=== PATIENT | female | born 1955 | race Caucasian/White ===

== ENCOUNTER 2021-10-29 14:16 | Emergency (ER) | payer MEDICARE, SELFPAY ==
--- NOTE | ~2021-10-29 | XR_ITS ---
XR ankle LT min 3V, XR foot LT min 3V 10/29/2021 15:09 Indication: Left foot and ankle pain after fall Procedure: 4 views left ankle and 4 views of the left foot Comparison: No prior studies for comparison. Findings: There is a large amount of soft tissue swelling surrounding the ankle. There is an avulsion fracture anterior superior margin of the talus on lateral view. Osteopenia. Ankle mortise intact. Ta lar dome is normal. There is a nondisplaced intra-articular fracture medial base of the fifth proximal phalanx. There is polyarticular osteoarthritis. Lisfranc joint intact. Impression: 1: Nondisplaced avulsion fracture anterior superior margin of the talus. 2: Nondisplaced intra-articular fracture medial base of the left fifth proximal phalanx. Reviewed, dictated and finalized at location A. Impression: 1: Nondisplaced avulsion fracture anterior superior margin of the talus. 2: Nondisplaced intra-articular fracture medial base of the left fifth proxima l phalanx. Impression: 1: Nondisplaced avulsion fracture anterior superior margin of the talus. 2: Nondisplaced intra-articular fracture medial base of the left fifth proxima l phalanx.
[2021-10-29 14:38] VITALS: BP 142/72; PULSE 71; RESP 20; TEMP 36.7; O2SAT 100
--- NOTE | 2021-10-29 14:54 | ED.LOWEXIN ---
HPI - Extremity Injury (Lower) General Chief Complaint: Extremity Injury, Lower Stated Complaint: knees and right foot injury Time Seen by Provider: 10/29/21 14:50 Source: patient and family Mode of arrival: ambulatory Limitations: no limitations History of Present Illness HPI Narrative: Ms. Ramirez is a 66-year-old female patient presenting to the clinic today with complaints of left foot/ pain and bilateral knee pain after falling 2 weeks ago. Patient reports that her left knee gave out and she fell on bilateral knees and also injured her foot at work. She reports that she has bad knees and is seeing an orthopedic provider for this. She denies striking her head. She is currently taking Xarelto for a blood clot in her left lower leg. Related Data Home Medications Medication Instructions Recorded Confirmed amlodipine 5 mg tablet 1 tablet PO DAILY 10/29/21 10/29/21 carvedilol 25 mg tablet 2 tablet PO BID 10/29/21 10/29/21 ergocalciferol (vitamin D2) 1,250 1 cap PO WEEKLY 10/29/21 10/29/21 mcg (50,000 unit) capsule furosemide 20 mg tablet 1 tablet PO DAILY 10/29/21 10/29/21 hydrochlorothiazide 25 mg tablet 1 tablet PO DAILY 10/29/21 10/29/21 metformin 500 mg tablet 1 tablet PO BID 10/29/21 10/29/21 olmesartan 40 mg tablet 40 tablet PO DAILY 10/29/21 10/29/21 rivaroxaban 20 mg tablet (Xarelto) 1 tablet PO DAILY 10/29/21 10/29/21 topiramate 100 mg tablet 100 tablet PO DAILY 10/29/21 10/29/21 Allergies Allergy/AdvReac Type Severity Reaction Status Date / Time diclofenac Allergy Unknown Unknown Verified 10/29/21 14:51 Penicillins Allergy Unknown Unknown Verified 10/29/21 14:51 Skrigmx-KSS-MlN Reductase Allergy Unknown Unknown Verified 10/29/21 14:51 Inhibitor [Jvlffvz-Qbj-Jhu Reductase Inhibitor] Review of Systems Review of Systems: Pertinent positives per HPI. Patient denies any fever, chills, rash, headache, visual changes, dizziness, cough, runny nose, sore throat, shortness of breath, chest pain, palpitations, nausea, vomiting, diarrhea, constipation, abdominal pain, or any urinary issues. [facility] Social History Social History Smoking status: Never smoker Alcohol intake: current Comments At the time of my signature, I reviewed and agree with the nursing past medical, surgical, social, and family history. There is no relevant family history pertinent to the patient complaint. Exam Narrative: General: Well-developed, overly obese, in no apparent distress Head: Normocephalic, atraumatic. Cardio: Regular rate and rhythm, s1 and s2 normal, no murmur appreciated. Resp: Clear to auscultation bilaterally, no rhonchi, rales, wheezing or rubs. Musculoskeletal: No deformity, various stages of bruising noted to the ankle and foot, tender to palpation over the fourth and fifth metatarsal of the left foot as well as tenderness to the lateral ankle. Limited normal range of motion due to swelling and pain to the left ankle and foot, limited flexion and extension to bilateral knees, mild tenderness to palpation over the anterior knee, muscle strength strong and equal, peripheral pulse strong, 2+ pitting edema, no cyanosis, normal gait and station Course Course Emergency Course: Portions of this record may have been created with voice recognition software. Level of Care: Express Care Visit Vital Signs Vital signs: Vital Signs Temperature 36.7 C 10/29/21 14:38 Pulse Rate 71 10/29/21 14:38 Respiratory Rate 20 10/29/21 14:38 Blood Pressure 142/72 H 10/29/21 14:38 Pulse Oximetry 100 10/29/21 14:38 Oxygen Delivery Room Air 10/29/21 14:38 Temperature 36.7 C 10/29/21 14:38 Pulse Rate 71 10/29/21 14:38 Respiratory Rate 20 10/29/21 14:38 Blood Pressure 142/72 H 10/29/21 14:38 Pulse Oximetry 100 10/29/21 14:38 Oxygen Delivery Room Air 10/29/21 14:38 Vital signs reviewed MDM - Extremity Injury (Lower) MDM N
== END 2021-10-29 15:44 | disposition home or self-care (01) ==
PROVIDERS: Emergency Provider Nurse Practitioner Family; PCP Internal Medicine
DX: S92.102A Unspecified fracture of left talus, initial encounter for closed fracture (principal); S92.355A Nondisplaced fracture of fifth metatarsal bone, left foot, initial encounter for closed fracture; W19.XXXA Unspecified fall, initial encounter; Z79.01 Long term (current) use of anticoagulants; E78.00 Pure hypercholesterolemia, unspecified; I10 Essential (primary) hypertension; Z86.73 Personal history of transient ischemic attack (TIA), and cerebral infarction without residual deficits; Z95.5 Presence of coronary angioplasty implant and graft; I25.2 Old myocardial infarction
CPT/HCPCS: 29515; 73610; 73630; 99204; G0463

== ENCOUNTER 2022-04-07 16:23 | Emergency (ER) | payer MEDICARE, SELFPAY ==
--- NOTE | ~2022-04-07 | XR_ITS ---
EXAM: XR hand RT min 3V, XR wrist RT min 3V DATE: 04/07/2022 17:12 (accession [id number]), 04/07/2022 17:13 (accession [id number]) HISTORY: KNI. SWELLING,REDNESS/PAIN TO THE TOUCH X3 DAYS. . COMPARISON: None available. FINDINGS: Normal mineralization. No fracture or dislocation. No lytic or blastic lesion. Scattered d egenerative changes. No erosion or periosteal change. Soft tissues within normal limits. IMPRESSION: No acute osseous finding in the right hand or wrist. Reviewed, dictated and finalized at location K. IMPRESSION: No acute osseous finding in the right hand or wrist.
[2022-04-07 16:30] VITALS: BP 116/57; PULSE 65; RESP 20; TEMP 37.4; O2SAT 100
--- NOTE | 2022-04-07 16:56 | ED.GENADULT ---
HPI - General Adult General Chief complaint: Extremity Problem,Nontraumatic Stated complaint: Swelling of Right Hand/Wrist Source: patient Mode of arrival: ambulatory Limitations: no limitations History of Present Illness HPI narrative: Patient presents for evaluation of pain in the right hand and wrist. She indicates pain has been present for the last 2-3 days. She woke from sleep with her symptoms. She cannot identify any precipitating cause or injury. No history of similar symptoms. Pain is constant, 10 out of 10 in severity. No paresthesias. She has associated decreased ROM. She is right hand dominant. No personal hx of gout but she does take HCTZ. She is anticoagulated with xarelto for DVT and is compliant with therapy. She is not taking any medications for her pain. No additional complaints or concerns. Related Data Home Medications Medication Instructions Recorded Confirmed amlodipine 5 mg tablet 1 tablet PO DAILY 10/29/21 04/07/22 carvedilol 25 mg tablet 2 tablet PO BID 10/29/21 04/07/22 ergocalciferol (vitamin D2) 1,250 1 cap PO WEEKLY 10/29/21 04/07/22 mcg (50,000 unit) capsule furosemide 20 mg tablet 1 tablet PO DAILY 10/29/21 04/07/22 hydrochlorothiazide 25 mg tablet 1 tablet PO DAILY 10/29/21 04/07/22 metformin 500 mg tablet 1 tablet PO BID 10/29/21 04/07/22 olmesartan 40 mg tablet 40 tablet PO DAILY 10/29/21 04/07/22 rivaroxaban 20 mg tablet (Xarelto) 1 tablet PO DAILY 10/29/21 04/07/22 topiramate 100 mg tablet 100 tablet PO DAILY 10/29/21 04/07/22 Allergies Allergy/AdvReac Type Severity Reaction Status Date / Time diclofenac Allergy Unknown Unknown Verified 04/07/22 16:57 Penicillins Allergy Unknown Unknown Verified 04/07/22 16:57 Naxmgfl-RNA-YjA Reductase Allergy Unknown Unknown Verified 04/07/22 16:57 Inhibitor [Krvrmpu-Lbo-Zui Reductase Inhibitor] Review of Systems Review of Systems: CONSTITUTIONAL: Denies fever, chills, or sweats. EYES: Denies visual changes, redness, or discharge. ENT: Denies rhinorrhea, congestion, sore throat, or otalgia. CARDIOVASCULAR: Denies chest pain, palpitations, or edema. RESPIRATORY: Denies cough or dyspnea. GASTROINTESTINAL: Denies abdominal pain, nausea, vomiting, or diarrhea. GENITOURINARY: Denies dysuria or hematuria. SKIN: Reports redness to the dorsal aspect of the right wrist/hand MUSCULOSKELETAL: Reports pain in the right hand and wrist with associated decreased range of motion. NEUROLOGIC: Denies headache, numbness, dizziness, or weakness. PSYCHIATRIC: Denies anxiety or depression. [facility] Past Medical History Medical History (Updated 04/07/22 @ 17:44 by JULIAN PattersonP, ) Diabetes Gout Hyperlipidemia Hypertension Myocardial infarction Surgical History Surgical History History of heart artery stent History of hysterectomy History of tubal ligation Family History Family History Mother Family history non-contributory Social History Social History Smoking status: Never smoker Alcohol intake: current Substance use: never Living arrangements: with family Gender identity (if verbalized by the patient): Female Sexual Orientation (if Verbalized by the Patient): Straight or Heterosexual Spiritual care concerns: No Exam Narrative: GENERAL: Well-appearing, well-nourished, and in no acute distress. HEAD: Normocephalic, atraumatic. EYES: PERRLA and EOMI. ENT: Nares clear, no rhinorrhea or epistaxis. Mucous membranes moist. Oropharynx without tonsillar hypertrophy exudate or other lesions. Bilateral TMs pearly burgess nonbulging NECK: Supple. No adenopathy or masses. No carotid bruits or JVD CHEST: Clear to auscultation. No respiratory distress. No wheezes rales or rhonchi HEART: Regular rate and rhythm. No murmur heard. Normal p
== END 2022-04-07 17:46 | disposition home or self-care (01) ==
PROVIDERS: Emergency Provider Nurse Practitioner; PCP Physician Assistant
DX: M10.9 Gout, unspecified (principal); E11.9 Type 2 diabetes mellitus without complications; E78.5 Hyperlipidemia, unspecified; I10 Essential (primary) hypertension; I25.2 Old myocardial infarction; Z95.5 Presence of coronary angioplasty implant and graft; Z79.01 Long term (current) use of anticoagulants
CPT/HCPCS: 73110; 73130; 99213; G0463

== ENCOUNTER 2022-05-21 11:00 | Emergency (ER) | payer MEDICARE, SELFPAY ==
[2022-05-21 11:07] VITALS: PULSE 74; RESP 16; TEMP 36.2
[2022-05-21 11:11] VITALS: BP 148/69
--- NOTE | 2022-05-21 12:17 | ED.GENADULT ---
HPI - General Adult General Chief complaint: Extremity Problem,Nontraumatic Stated complaint: gout right hand Time Seen by Provider: 05/21/22 12:17 Source: patient, RN notes reviewed and old records reviewed Mode of arrival: ambulatory Limitations: no limitations History of Present Illness HPI narrative: 67-year-old female who presents to [facility] with complaints of 2 day history of right hand pain with some swelling and redness noted along the dorsal proximal aspect her right hand up to wrist. Patient states she is unable to make a full fist. Patient reports he has had previous gout to that hand and she is right-hand dominant, denies any injury to her right hand. MD complaint: right hand pain and swelling with no injury Onset (ago): day(s) (2) Severity scale (1-10): 8 Treatments prior to arrival: other (Tylenol) Related Data Home Medications Medication Instructions Recorded Confirmed amlodipine 5 mg tablet 1 tablet PO DAILY 10/29/21 04/07/22 carvedilol 25 mg tablet 2 tablet PO BID 10/29/21 04/07/22 ergocalciferol (vitamin D2) 1,250 1 cap PO WEEKLY 10/29/21 04/07/22 mcg (50,000 unit) capsule furosemide 20 mg tablet 1 tablet PO DAILY 10/29/21 04/07/22 hydrochlorothiazide 25 mg tablet 1 tablet PO DAILY 10/29/21 04/07/22 metformin 500 mg tablet 1 tablet PO BID 10/29/21 04/07/22 olmesartan 40 mg tablet 40 tablet PO DAILY 10/29/21 04/07/22 rivaroxaban 20 mg tablet (Xarelto) 1 tablet PO DAILY 10/29/21 04/07/22 topiramate 100 mg tablet 100 tablet PO DAILY 10/29/21 04/07/22 colchicine 0.6 mg tablet mg 05/21/22 colchicine 0.6 mg tablet mg 05/21/22 colchicine 0.6 mg tablet mg 05/21/22 colchicine 0.6 mg tablet mg 05/21/22 05/21/22 glimepiride 2 mg tablet mg 05/21/22 insulin degludec 200 unit/mL (3 unit subcut 05/21/22 mL) subcutaneous pen (Tresiba FlexTouch U-200 insulin) Allergies Allergy/AdvReac Type Severity Reaction Status Date / Time diclofenac Allergy Unknown Unknown Verified 11/05/22 16:57 Penicillins Allergy Unknown Unknown Verified 04/07/22 16:57 Avygyqk-SXM-CkQ Reductase Allergy Unknown Unknown Verified 04/07/22 16:57 Inhibitor [Kmfkhiy-Rez-Afg Reductase Inhibitor] levofloxacin [From Levaquin] Allergy Rash Verified 05/21/22 11:06 Review of Systems Review of Systems: CONSTITUTIONAL: Denies fever, chills, or sweats. EYES: Denies visual changes, redness, or discharge. ENT: Denies rhinorrhea, congestion, sore throat, or otalgia. CARDIOVASCULAR: Denies chest pain, palpitations, or edema. RESPIRATORY: Denies cough or dyspnea. GASTROINTESTINAL: Denies abdominal pain, nausea, vomiting, or diarrhea. GENITOURINARY: Denies dysuria or hematuria. SKIN: Denies rash or itching. MUSCULOSKELETAL: Denies back pain,positive for pain to right hand dorsal aspect to wrist, or myalgia. NEUROLOGIC: Denies headache, numb ness, or weakness. PSYCHIATRIC: Denies anxiety or depression. All systems reviewed & are unremarkable except as noted in HPI and below PMFSH Past Medical History Medical History Diabetes Gout Hyperlipidemia Hypertension Myocardial infarction Surgical History Surgical History History of heart artery stent History of hysterectomy History of tubal ligation Family History Family History Mother Family history non-contributory Social History Social History Smoking status: Never smoker Alcohol intake: current Substance use: never Gender identity (if verbalized by the patient): Female Sexual Orientation (if Verbalized by the Patient): Straight or Heterosexual Spiritual care concerns: No Comments At time of signature, agree with nursing past medical, surgical, social and family history. There is no relevant family history pertinent to the presenting complaint
== END 2022-05-21 12:42 | disposition home or self-care (01) ==
PROVIDERS: Emergency Provider Registered Nurse; PCP Physician Assistant
DX: M10.9 Gout, unspecified (principal); E11.9 Type 2 diabetes mellitus without complications; E78.5 Hyperlipidemia, unspecified; I10 Essential (primary) hypertension; I25.2 Old myocardial infarction; I25.10 Atherosclerotic heart disease of native coronary artery without angina pectoris; Z95.5 Presence of coronary angioplasty implant and graft
CPT/HCPCS: 99213; G0463

== ENCOUNTER 2022-08-29 14:18 | Emergency (ER) | payer MEDICARE, SELFPAY ==
[2022-08-29 14:40] VITALS: BP 117/59; PULSE 70; RESP 18; TEMP 36.5; O2SAT 99
--- NOTE | 2022-08-29 15:23 | ED.LOWEXIN ---
HPI - Extremity Injury (Lower) General Chief Complaint: Extremity Injury, Lower Stated Complaint: Left Foot Pain/Right Hand Pain Related Data Home Medications Medication Instructions Recorded Confirmed amlodipine 5 mg tablet 10 mg PO DAILY 10/29/21 08/29/22 carvedilol 25 mg tablet 25 mg PO BID 10/29/21 08/29/22 ergocalciferol (vitamin D2) 1,250 1,250 mcg PO WEEKLY 10/29/21 08/29/22 mcg (50,000 unit) capsule furosemide 20 mg tablet 20 mg PO DAILY 10/29/21 08/29/22 hydrochlorothiazide 25 mg tablet 25 mg PO DAILY 10/29/21 08/29/22 metformin 500 mg tablet 500 mg PO DAILY 10/29/21 08/29/22 olmesartan 40 mg tablet 40 tablet PO DAILY 10/29/21 08/29/22 rivaroxaban 20 mg tablet (Xarelto) 10 mg PO DAILY 10/29/21 08/29/22 topiramate 100 mg tablet 100 tablet PO DAILY 10/29/21 08/29/22 glimepiride 2 mg tablet 2 mg PO BID 05/21/22 08/29/22 insulin degludec 200 unit/mL (3 44 unit subcut DAILY 05/21/22 08/29/22 mL) subcutaneous pen (Tresiba FlexTouch U-200 insulin) aspirin 81 mg chewable tablet 81 mg PO DAILY 08/29/22 08/29/22 fenofibrate 160 mg tablet 160 mg PO DAILY 08/29/22 08/29/22 phentermine 37.5 mg tablet 37.5 mg PO DAILY 08/29/22 08/29/22 potassium chloride 20 mEq 20 meq PO DAILY 08/29/22 08/29/22 tablet,extended release(part/cryst) (Klor-Con M) Allergies Allergy/AdvReac Type Severity Reaction Status Date / Time diclofenac Allergy Unknown Unknown Verified 08/29/22 14:57 Penicillins Allergy Unknown Unknown Verified 08/29/22 14:57 Hkxflet-FEJ-PaP Reductase Allergy Unknown Unknown Verified 08/29/22 14:57 Inhibitor [Rntidtn-Mqi-Qxi Reductase Inhibitor] levofloxacin [From Levaquin] Allergy Rash Verified 08/29/22 14:57 [facility] Past Medical History Medical History Diabetes Gout Hyperlipidemia Hypertension Myocardial infarction Surgical History Surgical History History of heart artery stent History of hysterectomy History of tubal ligation Family History Family History Mother Family history non-contributory Social History Social History Smoking status: Never smoker Alcohol intake: current Substance use: never Living arrangements: with family Gender identity (if verbalized by the patient): Female Sexual Orientation (if Verbalized by the Patient): Straight or Heterosexual Spiritual care concerns: No Course Vital Signs Vital signs: Vital Signs Temperature 36.5 C 08/29/22 14:40 Pulse Rate 70 08/29/22 14:40 Respiratory Rate 18 08/29/22 14:40 Blood Pressure 117/59 L 08/29/22 14:40 Pulse Oximetry 99 08/29/22 14:40 Oxygen Delivery Room Air 08/29/22 14:40 Temperature 36.5 C 08/29/22 14:40 Pulse Rate 70 08/29/22 14:40 Respiratory Rate 18 08/29/22 14:40 Blood Pressure 117/59 L 08/29/22 14:40 Pulse Oximetry 99 08/29/22 14:40 Oxygen Delivery Room Air 08/29/22 14:40 Discharge Plan Discharge Prescriptions: No Action hydrochlorothiazide 25 mg tablet 25 mg PO DAILY olmesartan 40 mg tablet 40 tablet PO DAILY topiramate 100 mg tablet 100 tablet PO DAILY amlodipine 5 mg tablet 10 mg PO DAILY ergocalciferol (vitamin D2) 1,250 mcg (50,000 unit) capsule 1,250 mcg PO WEEKLY Xarelto 20 mg tablet 10 mg PO DAILY metformin 500 mg tablet 500 mg PO DAILY carvedilol 25 mg tablet 25 mg PO BID furosemide 20 mg tablet 20 mg PO DAILY glimepiride 2 mg tablet 2 mg PO BID insulin degludec [Tresiba FlexTouch U-200] 200 unit/mL (3 mL) insulin pen 44 unit SUBCUT DAILY phentermine 37.5 mg tablet 37.5 mg PO DAILY aspirin [Baby Aspirin] 81 mg Tablet,Chewable 81 mg PO DAILY potassium chloride [Klor-Con M20] 20 mEq Tablet,Er Particles/Crystals
--- NOTE | 2022-08-29 15:30 | ED.GENADULT ---
HPI - General Adult General Chief complaint: Extremity Injury, Lower Stated complaint: Left Foot Pain/Right Hand Pain Time Seen by Provider: 08/29/22 15:30 Source: patient, RN notes reviewed and old records reviewed Mode of arrival: ambulatory Limitations: no limitations History of Present Illness HPI narrative: 67 year old female presents to [facility] ambulatory with use of walker with complaints of right hand pain and swelling for the past 4 days with no injury and left foot pain for the past 2 days with no injury to either limb. Patient reports that she has gout and thinks it is a flare of her condition. patient has taken Tylenol and used angelito wrap to her foot. Patient reports that left foot is especially painful with weight bearing.and ambulation. Patient reports that she has appointment with her primary on the 13 of September. patient is right hand dominant. MD complaint: pain right hand and left foot Onset (ago): day(s) (4 days hand, 2 days foot) Severity scale (1-10): 6 Quality: other (throbbing) Treatments prior to arrival: other (Tylenol and angelito) Related Data Home Medications Medication Instructions Recorded Confirmed amlodipine 5 mg tablet 10 mg PO DAILY 10/29/21 08/29/22 carvedilol 25 mg tablet 25 mg PO BID 10/29/21 08/29/22 ergocalciferol (vitamin D2) 1,250 1,250 mcg PO WEEKLY 10/29/21 08/29/22 mcg (50,000 unit) capsule furosemide 20 mg tablet 20 mg PO DAILY 10/29/21 08/29/22 hydrochlorothiazide 25 mg tablet 25 mg PO DAILY 10/29/21 08/29/22 metformin 500 mg tablet 500 mg PO DAILY 10/29/21 08/29/22 olmesartan 40 mg tablet 40 tablet PO DAILY 10/29/21 08/29/22 rivaroxaban 20 mg tablet (Xarelto) 10 mg PO DAILY 10/29/21 08/29/22 topiramate 100 mg tablet 100 tablet PO DAILY 10/29/21 08/29/22 glimepiride 2 mg tablet 2 mg PO BID 05/21/22 08/29/22 insulin degludec 200 unit/mL (3 44 unit subcut DAILY 05/21/22 08/29/22 mL) subcutaneous pen (Tresiba FlexTouch U-200 insulin) aspirin 81 mg chewable tablet 81 mg PO DAILY 08/29/22 08/29/22 fenofibrate 160 mg tablet 160 mg PO DAILY 08/29/22 08/29/22 phentermine 37.5 mg tablet 37.5 mg PO DAILY 08/29/22 08/29/22 potassium chloride 20 mEq 20 meq PO DAILY 08/29/22 08/29/22 tablet,extended release(part/cryst) (Klor-Con M) Allergies Allergy/AdvReac Type Severity Reaction Status Date / Time diclofenac Allergy Unknown Unknown Verified 08/29/22 14:57 Penicillins Allergy Unknown Unknown Verified 08/29/22 14:57 Mvnslxu-FEJ-HuI Reductase Allergy Unknown Unknown Verified 08/29/22 14:57 Inhibitor [Whrtohw-Mlw-Eyk Reductase Inhibitor] levofloxacin [From Levaquin] Allergy Rash Verified 08/29/22 14:57 Review of Systems Review of Systems: CONSTITUTIONAL: Denies fever, chills, or sweats. EYES: Denies visual changes, redness, or discharge. ENT: Denies rhinorrhea, congestion, sore throat, or otalgia. CARDIOVASCULAR: Denies chest pain, palpitations, or edema. RESPIRATORY: Denies cough or dyspnea. GASTROINTESTINAL: Denies abdominal pain, nausea, vomiting, or diarrhea. GENITOURINARY: Denies dysuria or hematuria. SKIN: Denies rash or itching. MUSCULOSKELETAL: Denies back pain,positive for right hand pain and swelling and also left foot pain with no injuries to these limbs, or myalgia. NEUROLOGIC: Denies headache, numbness, or weakness. PSYCHIATRIC: Denies anxiety or depression. All systems reviewed & are unremarkable except as noted in HPI and below PMFSH Past Medical History Medical History Diabetes Gout Hyperlipidemia Hypertension Myocardial infarction Surgical History Surgical History History of heart artery stent History of hysterectomy History of tubal ligation Family History Family History Mother Family history non-contributory Social History Social History (Reviewed 05/31/22 @ 10:36 by Forrest
== END 2022-08-29 15:57 | disposition home or self-care (01) ==
PROVIDERS: Emergency Provider Registered Nurse; PCP Physician Assistant
DX: M1A.9XX0 Chronic gout, unspecified, without tophus (tophi) (principal); E11.9 Type 2 diabetes mellitus without complications; E78.5 Hyperlipidemia, unspecified; I10 Essential (primary) hypertension; I34.1 Nonrheumatic mitral (valve) prolapse; Z95.5 Presence of coronary angioplasty implant and graft
CPT/HCPCS: 99213; G0463